=== PATIENT | female | born 1955 ===

== ENCOUNTER 2017-08-26 06:47 | Day surgery (SDC) | payer OTHER ==
[2017-08-26 07:11] VITALS: BMI 27.4
--- NOTE | 2017-08-26 08:23 | CP.SDSHP ---
Same Day Surgery H & P - History Proposed Procedure: COLONSCOPY Pre-Op Diagnosis: SEE NOTES - Previous Medical/Surgical History Cardiac: Hypertension Endocrine/Metabolic: Thyroid Disease, Other Neuro: Other Misc: Other Pain: 2.Mild Pain - Allergies Allergies: Allergies No Known Allergies Allergy (Verified 08/26/17 07:06) - Physical Exam General Appearance: N Vital Signs: Vital Signs 08/26/17 07:17 Temperature 97.3 F L Pulse Rate 73 Respiratory 19 Rate Blood Pressure 139/66 O2 Sat by Pulse 97 Oximetry Mental Status: Alert & Oriented x3 Neuro: WNL Heart: Other Lungs: WNL GI: Other - {Optional Preform as Required} Breast: WNL Abdomen: Other Rectal: WNL Integument: WNL : WNL Ortho: WNL ENT: WNL - Impression Pt. Evaluated Today:Candidate for Anesthesia & Procedure: Yes - Date & Time Time: 08:23 Short Stay Discharge - Short Stay Discharge Admitting Diagnosis/Reason for Visit: SCREENING Disposition: HOME/ ROUTINE
[2017-08-26] MEDS ORDERED: Propofol 10 mg/ml Inj (20 ML) ONE (08:25)
[2017-08-26] MEDS ORDERED: Belladonna-Phenobarbital PO ONE (09:00)
[2017-08-26 09:27] VITALS: O2SAT 100
[2017-08-26 09:29] VITALS: TEMP 98
[2017-08-26 10:18] VITALS: BP 112/67; PULSE 77; RESP 14
== END 2017-08-26 09:12 | disposition home or self-care (01) ==
LOC: C.ENDO 06:47
PROVIDERS: ATTEND Specialist
DX: K58.9 Irritable bowel syndrome, unspecified (principal); K64.8 Other hemorrhoids
CPT/HCPCS: 45380; 88305; J2704